=== PATIENT | female | born 1990 | race Caucasian/White ===

== ENCOUNTER 2020-03-11 09:24 | Emergency (ER) | payer OTHER ==
[~2020-03-11] VITALS: Ht 170.2 cm; Wt 68.2 kg
[2020-03-11 09:37] VITALS: BP 106/70
[2020-03-11] MEDS ORDERED: acetaminophen 325mg tablet PO ONE (10:10)
[2020-03-11] MEDS ORDERED: ibuprofen tablet 400 MG TABLET PO ONE (10:10)
== END 2020-03-11 10:33 | disposition home or self-care (01) ==
LOC: ER 09:25
DX: M54.2 Cervicalgia (principal); R10.9 Unspecified abdominal pain; Z88.0 Allergy status to penicillin; X58.XXXA Exposure to other specified factors, initial encounter; Y93.89 Activity, other specified; Y92.89 Other specified places as the place of occurrence of the external cause; Y99.8 Other external cause status
CPT/HCPCS: 99283

== ENCOUNTER 2021-04-11 10:50 | Emergency (ER) | payer MEDICAID, OTHER ==
[~2021-04-11] VITALS: Ht 170.2 cm; Wt 59.1 kg
[2021-04-11 11:21] VITALS: BP 105/73
== END 2021-04-11 18:10 | disposition left against medical advice (07) ==
LOC: ER 10:51
DX: R52 Pain, unspecified (principal); Z53.21 Procedure and treatment not carried out due to patient leaving prior to being seen by health care provider

== ENCOUNTER 2023-03-21 17:38 | Emergency (ER) | payer MEDICAID ==
[~2023-03-21] VITALS: Ht 172.7 cm; Wt 80.0 kg
[2023-03-21 17:52] VITALS: BP 108/72; PULSE 90; RESP 18; TEMP 97.8; O2SAT 98
== END 2023-03-21 19:24 | disposition left against medical advice (07) ==
LOC: ER 17:39
DX: R10.9 Unspecified abdominal pain (principal); Z53.21 Procedure and treatment not carried out due to patient leaving prior to being seen by health care provider
CPT/HCPCS: 99281

== ENCOUNTER 2023-06-16 19:23 | Emergency (ER) | payer MEDICAID ==
[~2023-06-16] VITALS: Ht 170.2 cm; Wt 64.1 kg
[2023-06-16 19:47] VITALS: TEMP 97.9
[2023-06-16 21:06] VITALS: BP 123/82; PULSE 86; RESP 16; O2SAT 99
== END 2023-06-16 21:24 | disposition home or self-care (01) ==
LOC: ER 19:24
DX: T23.261A Burn of second degree of back of right hand, initial encounter (principal); X08.8XXA Exposure to other specified smoke, fire and flames, initial encounter; Y93.89 Activity, other specified; Y92.89 Other specified places as the place of occurrence of the external cause; Y99.8 Other external cause status; Z88.0 Allergy status to penicillin; Z79.899 Other long term (current) drug therapy
CPT/HCPCS: 99281